=== PATIENT | male | born 1950 | race Caucasian/White ===

== ENCOUNTER 2019-06-03 07:47 | Outpatient (CLI) | payer OTHER, SELFPAY ==
[2019-06-03 08:27] LABS: Alanine Aminotransferase 13 U/L (4-50); Albumin Level 4.3 g/dL (3.5-5.1); Alkaline Phosphatase 81 U/L (38-126); Aspartate Amino Transferase 20 U/L (17-59); Bilirubin,Total 0.5 mg/dL (0.2-1.3); Blood Urea Nitrogen 19 mg/dL (9-20); Calcium 9.3 mg/dL (8.4-10.2); Carbon Dioxide 25 mmol/L (22-30); Chloride 101 mmol/L (98-107); Cholesterol 168 mg/dL (0-200); Estimated Glomerular Filt Rate 38; Glucose 159 mg/dL (75-110); HDL Direct 64 mg/dL; Potassium 4.5 mmol/L (3.4-5.0); Sodium 138 mmol/L (137-145); Triglycerides 138 mg/dL (<150)
[2019-06-03 08:38] LABS: LDL Cholesterol Direct 77 mg/dL
[2019-06-03 09:15] LABS: Hemoglobin A1C 7.2 % (<5.7)
[2019-06-03 10:21] LABS: Free T4 Free Thyroxine 1.04 ng/mL (0.78-2.19)
== END 2019-06-03 07:48 | disposition home or self-care (01) ==
PROVIDERS: PCP Internal Medicine; Visit Provider Nurse Practitioner
DX: E78.5 Hyperlipidemia, unspecified (principal); E11.29 Type 2 diabetes mellitus with other diabetic kidney complication; E03.9 Hypothyroidism, unspecified
CPT/HCPCS: 36415; 80048; 80061; 80076; 83036; 84439; 84443

== ENCOUNTER 2019-06-14 08:12 | Outpatient (CLI) | payer OTHER, SELFPAY ==
[2019-06-14 09:04] LABS: Creatinine Urine 85.2 mg/dL; Total Protein Urine Random 8 mg/dL
[2019-06-14 09:10] LABS: Albumin Level 3.9 g/dL (3.5-5.1); Blood Urea Nitrogen 21 mg/dL (9-20); Calcium 8.9 mg/dL (8.4-10.2); Carbon Dioxide 26 mmol/L (22-30); Chloride 107 mmol/L (98-107); Estimated Glomerular Filt Rate 38; Glucose 83 mg/dL (75-110); Phosphorus 3.7 mg/dL (2.5-4.5); Potassium 4.6 mmol/L (3.4-5.0); Sodium 138 mmol/L (137-145)
[2019-06-14 09:15] LABS: Hemoglobin A1C 7.2 % (<5.7)
[2019-06-14 09:19] LABS: Parathyroid Intact 59.4 pg/mL (7.5-53.5)
[2019-06-14 09:38] LABS: Vitamin D 25 Hydroxy 47.5 ng/mL
== END 2019-06-14 08:13 | disposition home or self-care (01) ==
PROVIDERS: PCP Internal Medicine; Visit Provider Internal Medicine Nephrology
DX: I12.9 Hypertensive chronic kidney disease with stage 1 through stage 4 chronic kidney disease, or unspecified chronic kidney disease (principal); N18.3 Chronic kidney disease, stage 3 (moderate); E11.29 Type 2 diabetes mellitus with other diabetic kidney complication; R80.8 Other proteinuria
CPT/HCPCS: 36415; 80069; 82306; 82570; 83036; 83970; 84156

== ENCOUNTER 2019-10-19 07:36 | Outpatient (CLI) | payer OTHER, SELFPAY ==
[2019-10-19 08:22] LABS: Creatinine Urine 89.7 mg/dL; Total Protein Urine Random 9 mg/dL
[2019-10-19 08:23] LABS: Albumin Level 4.1 g/dL (3.5-5.1); Blood Urea Nitrogen 27 mg/dL (9-20); Carbon Dioxide 25 mmol/L (22-30); Chloride 105 mmol/L (98-107); Estimated Glomerular Filt Rate 38; Glucose 139 mg/dL (75-110); Phosphorus 3.9 mg/dL (2.5-4.5); Potassium 4.7 mmol/L (3.4-5.0); Sodium 134 mmol/L (137-145)
== END 2019-10-19 07:37 | disposition home or self-care (01) ==
LOC: ANHLAB 07:40
PROVIDERS: PCP Internal Medicine; Visit Provider Internal Medicine Nephrology
DX: N18.3 Chronic kidney disease, stage 3 (moderate) (principal); I12.9 Hypertensive chronic kidney disease with stage 1 through stage 4 chronic kidney disease, or unspecified chronic kidney disease; E11.29 Type 2 diabetes mellitus with other diabetic kidney complication; R80.8 Other proteinuria
CPT/HCPCS: 36415; 80069; 82570; 84156

== ENCOUNTER 2019-12-03 07:51 | Outpatient (CLI) | payer OTHER, SELFPAY ==
[2019-12-03 08:50] LABS: Alanine Aminotransferase 13 U/L (4-50); Albumin Level 4.1 g/dL (3.5-5.1); Alkaline Phosphatase 62 U/L (38-126); Anion Gap 7 mmol/L (8-16); Aspartate Amino Transferase 21 U/L (17-59); Bilirubin,Total 0.3 mg/dL (0.2-1.3); Blood Urea Nitrogen 28 mg/dL (9-20); Carbon Dioxide 25 mmol/L (22-30); Chloride 105 mmol/L (98-107); Cholesterol 196 mg/dL (0-200); Estimated Glomerular Filt Rate 38; Glucose 137 mg/dL (75-110); HDL Direct 55 mg/dL; Potassium 4.9 mmol/L (3.4-5.0); Sodium 137 mmol/L (137-145); Triglycerides 141 mg/dL (<150)
[2019-12-03 09:01] LABS: LDL Cholesterol Direct 91 mg/dL
[2019-12-03 09:15] LABS: Prostate Specific Antigen 2.3 ng/mL (< OR = 4.0)
[2019-12-03 09:23] LABS: Hemoglobin A1C 6.8 % (<5.7)
== END 2019-12-03 07:52 | disposition home or self-care (01) ==
LOC: ANHLAB 07:52
PROVIDERS: PCP Internal Medicine; Visit Provider Internal Medicine
DX: E03.9 Hypothyroidism, unspecified (principal); E78.5 Hyperlipidemia, unspecified; E11.21 Type 2 diabetes mellitus with diabetic nephropathy; I10 Essential (primary) hypertension; Z79.899 Other long term (current) drug therapy; Z12.5 Encounter for screening for malignant neoplasm of prostate
CPT/HCPCS: 36415; 80053; 80061; 83036; 84153; 84443; G0103

== ENCOUNTER 2020-02-16 09:13 | Outpatient (CLI) | payer OTHER, SELFPAY ==
[2020-02-16 09:51] LABS: Albumin Level 4.2 g/dL (3.5-5.1); Anion Gap 7 mmol/L (8-16); Blood Urea Nitrogen 17 mg/dL (9-20); Calcium 9.4 mg/dL (8.4-10.2); Carbon Dioxide 27 mmol/L (22-30); Chloride 103 mmol/L (98-107); Estimated Glomerular Filt Rate 38; Glucose 146 mg/dL (75-110); Phosphorus 3.3 mg/dL (2.5-4.5); Potassium 5.4 mmol/L (3.4-5.0); Sodium 137 mmol/L (137-145)
[2020-02-16 09:58] LABS: Creatinine Urine 110.9 mg/dL; Total Protein Urine Random 9 mg/dL
[2020-02-16 10:02] LABS: Parathyroid Intact 53.9 pg/mL (7.5-53.5)
== END 2020-02-16 09:14 | disposition home or self-care (01) ==
PROVIDERS: PCP Internal Medicine; Visit Provider Internal Medicine Nephrology
DX: I12.9 Hypertensive chronic kidney disease with stage 1 through stage 4 chronic kidney disease, or unspecified chronic kidney disease (principal); N18.30 Chronic kidney disease, stage 3 unspecified; E11.22 Type 2 diabetes mellitus with diabetic chronic kidney disease; R80.8 Other proteinuria
CPT/HCPCS: 36415; 80069; 82306; 82570; 83970; 84156

== ENCOUNTER 2021-10-02 11:47 | Outpatient (CLI) | payer MEDICARE, SELFPAY ==
[2021-10-02 12:41] LABS: Albumin Level 4.1 g/dL (3.5-5.1); Anion Gap 5 mmol/L (8-16); Blood Urea Nitrogen 36 mg/dL (9-20); Calcium 8.2 mg/dL (8.4-10.2); Carbon Dioxide 22 mmol/L (22-30); Chloride 108 mmol/L (98-107); Estimated Glomerular Filt Rate 35; Glucose 174 mg/dL (65-110); Potassium 4.5 mmol/L (3.4-5.0); Sodium 135 mmol/L (137-145)
[2021-10-02 12:53] LABS: Parathyroid Intact 126.4 pg/mL (7.5-53.5)
[2021-10-02 13:08] LABS: Creatinine Urine 107.3 mg/dL
[2021-10-02 13:17] LABS: Vitamin D 25 Hydroxy 34.1 ng/mL
[2021-10-02 14:06] LABS: Total Protein Urine Random < 5 mg/dL; Ur Ttl Prot Creatinine Ratio < 0.05 mg/mg (0-0.20)
== END 2021-10-02 11:48 | disposition home or self-care (01) ==
PROVIDERS: PCP Internal Medicine; Visit Provider Internal Medicine Nephrology
DX: N18.32 Chronic kidney disease, stage 3b (principal); E11.29 Type 2 diabetes mellitus with other diabetic kidney complication; I12.9 Hypertensive chronic kidney disease with stage 1 through stage 4 chronic kidney disease, or unspecified chronic kidney disease; E55.9 Vitamin D deficiency, unspecified
CPT/HCPCS: 36415; 80069; 82306; 82570; 83970; 84156

== ENCOUNTER 2022-02-12 13:11 | Outpatient (CLI) | payer MEDICARE, SELFPAY ==
[2022-02-12 13:56] LABS: Creatinine Urine 80.9 mg/dL
[2022-02-12 14:02] LABS: Albumin Level 4.3 g/dL (3.5-5.1); Anion Gap 10 mmol/L (8-16); Blood Urea Nitrogen 29 mg/dL (9-20); Calcium 8.6 mg/dL (8.4-10.2); Carbon Dioxide 22 mmol/L (22-30); Chloride 103 mmol/L (98-107); Estimated Glomerular Filt Rate 35; Glucose 96 mg/dL (65-110); Phosphorus 3.4 mg/dL (2.5-4.5); Potassium 4.7 mmol/L (3.4-5.0); Sodium 135 mmol/L (137-145)
[2022-02-12 14:05] LABS: Parathyroid Intact 82.6 pg/mL (7.5-53.5)
[2022-02-12 14:12] LABS: Total Protein Urine Random < 5 mg/dL; Ur Ttl Prot Creatinine Ratio < 0.06 mg/mg (0-0.20)
== END 2022-02-12 13:12 | disposition home or self-care (01) ==
LOC: ANHLAB 13:15
PROVIDERS: PCP Internal Medicine; Visit Provider Internal Medicine Nephrology
DX: N18.32 Chronic kidney disease, stage 3b (principal); E11.29 Type 2 diabetes mellitus with other diabetic kidney complication; I12.9 Hypertensive chronic kidney disease with stage 1 through stage 4 chronic kidney disease, or unspecified chronic kidney disease; N25.81 Secondary hyperparathyroidism of renal origin
CPT/HCPCS: 36415; 80069; 82570; 83970; 84156

== ENCOUNTER 2022-03-26 10:08 | Outpatient (CLI) | payer MEDICARE, SELFPAY ==
[2022-03-26 11:51] LABS: Alanine Aminotransferase 17 U/L (6-50); Albumin Level 4.4 g/dL (3.5-5.1); Alkaline Phosphatase 96 U/L (38-126); Anion Gap 7 mmol/L (8-16); Aspartate Amino Transferase 23 U/L (17-59); Bilirubin,Total 0.4 mg/dL (0.2-1.3); Blood Urea Nitrogen 31 mg/dL (9-20); Calcium 8.9 mg/dL (8.4-10.2); Carbon Dioxide 24 mmol/L (22-30); Chloride 101 mmol/L (98-107); Cholesterol 271 mg/dL (0-200); Estimated Glomerular Filt Rate 31; Glucose 101 mg/dL (65-110); HDL Direct 65 mg/dL; Potassium 4.8 mmol/L (3.4-5.0); Sodium 132 mmol/L (137-145); Triglycerides 201 mg/dL (<150)
[2022-03-26 12:01] LABS: LDL Cholesterol Direct 113 mg/dL
[2022-03-26 12:18] LABS: Vitamin D 25 Hydroxy 31.1 ng/mL
== END 2022-03-26 10:09 | disposition home or self-care (01) ==
LOC: ANHLAB 10:11
PROVIDERS: PCP Internal Medicine; Visit Provider Internal Medicine
DX: E78.5 Hyperlipidemia, unspecified (principal); I10 Essential (primary) hypertension; E03.9 Hypothyroidism, unspecified; E55.9 Vitamin D deficiency, unspecified; E11.21 Type 2 diabetes mellitus with diabetic nephropathy
CPT/HCPCS: 36415; 80053; 80061; 82306; 83036; 84443

== ENCOUNTER 2022-06-25 11:55 | Outpatient (CLI) | payer MEDICARE, SELFPAY ==
[2022-06-25 12:37] LABS: Creatinine Urine 58.3 mg/dL; Total Protein Urine Random 6 mg/dL
[2022-06-25 12:44] LABS: Albumin Level 4.4 g/dL (3.5-5.1); Anion Gap 5 mmol/L (8-16); Blood Urea Nitrogen 32 mg/dL (9-20); Calcium 9.2 mg/dL (8.4-10.2); Carbon Dioxide 25 mmol/L (22-30); Chloride 104 mmol/L (98-107); Estimated Glomerular Filt Rate 33; Glucose 106 mg/dL (65-110); Phosphorus 3.9 mg/dL (2.5-4.5); Potassium 5.1 mmol/L (3.4-5.0); Sodium 134 mmol/L (137-145)
[2022-06-25 13:01] LABS: Vitamin D 25 Hydroxy 25.7 ng/mL
[2022-06-25 20:03] LABS: Parathyroid Intact 62.8 pg/mL (7.5-53.5)
== END 2022-06-25 11:56 | disposition home or self-care (01) ==
LOC: ANHLAB 11:57
PROVIDERS: PCP Internal Medicine; Visit Provider Internal Medicine Nephrology
DX: N18.32 Chronic kidney disease, stage 3b (principal); E11.22 Type 2 diabetes mellitus with diabetic chronic kidney disease; I12.9 Hypertensive chronic kidney disease with stage 1 through stage 4 chronic kidney disease, or unspecified chronic kidney disease; E55.9 Vitamin D deficiency, unspecified; N25.81 Secondary hyperparathyroidism of renal origin
CPT/HCPCS: 36415; 80069; 82306; 82570; 83970; 84156

== ENCOUNTER 2022-09-24 08:00 | Outpatient (CLI) | payer MEDICARE, SELFPAY ==
[2022-09-24 19:41] LABS: Hemoglobin A1C 6.7 % (<5.7)
[2022-09-25 12:59] LABS: Alanine Aminotransferase 18 U/L (6-50); Albumin Level 4.2 g/dL (3.5-5.1); Alkaline Phosphatase 64 U/L (38-126); Anion Gap 9 mmol/L (8-16); Aspartate Amino Transferase 31 U/L (17-59); Bilirubin,Total 0.3 mg/dL (0.2-1.3); Blood Urea Nitrogen 33 mg/dL (9-20); Calcium 8.5 mg/dL (8.4-10.2); Carbon Dioxide 22 mmol/L (22-30); Chloride 105 mmol/L (98-107); Cholesterol 186 mg/dL (0-200); Estimated Glomerular Filt Rate 31; Glucose 86 mg/dL (65-110); HDL Direct 59 mg/dL; LDL Cholesterol Direct 78 mg/dL; Potassium 4.9 mmol/L (3.4-5.0); Sodium 136 mmol/L (137-145); Triglycerides 135 mg/dL (<150)
[2022-09-25 13:01] LABS: Vitamin D 25 Hydroxy 21.3 ng/mL
== END 2022-09-24 08:01 | disposition home or self-care (01) ==
LOC: ANHLAB 18:47
PROVIDERS: PCP Internal Medicine; Visit Provider Nurse Practitioner
DX: E55.9 Vitamin D deficiency, unspecified (principal); E78.5 Hyperlipidemia, unspecified; E11.9 Type 2 diabetes mellitus without complications
CPT/HCPCS: 36415; 80053; 80061; 82306; 83036

== ENCOUNTER 2022-10-29 13:02 | Outpatient (CLI) | payer MEDICARE, SELFPAY ==
[2022-10-29 13:42] LABS: Creatinine Urine 77.9 mg/dL; Total Protein Urine Random < 5 mg/dL; Ur Ttl Prot Creatinine Ratio < 0.06 mg/mg (0-0.20)
== END 2022-10-29 13:03 | disposition home or self-care (01) ==
PROVIDERS: PCP Family Medicine; Visit Provider Internal Medicine Nephrology
DX: E11.22 Type 2 diabetes mellitus with diabetic chronic kidney disease (principal); N18.32 Chronic kidney disease, stage 3b; I12.9 Hypertensive chronic kidney disease with stage 1 through stage 4 chronic kidney disease, or unspecified chronic kidney disease
CPT/HCPCS: 36415; 82570; 84156

== ENCOUNTER 2022-11-05 08:25 | Outpatient (CLI) | payer MEDICARE, SELFPAY ==
[2022-11-05 09:57] LABS: Albumin Level 3.5 g/dL (3.5-5.1); Anion Gap 11 mmol/L (8-16); Blood Urea Nitrogen 33 mg/dL (9-20); Calcium 8.2 mg/dL (8.4-10.2); Carbon Dioxide 21 mmol/L (22-30); Chloride 95 mmol/L (98-107); Estimated Glomerular Filt Rate 31; Glucose 369 mg/dL (65-110); Phosphorus 2.8 mg/dL (2.5-4.5); Potassium 4.2 mmol/L (3.4-5.0); Sodium 127 mmol/L (137-145)
== END 2022-11-05 08:26 | disposition home or self-care (01) ==
LOC: ANHLAB 08:26
PROVIDERS: PCP Nurse Practitioner Family; Visit Provider Internal Medicine Nephrology
DX: I12.9 Hypertensive chronic kidney disease with stage 1 through stage 4 chronic kidney disease, or unspecified chronic kidney disease (principal); N18.32 Chronic kidney disease, stage 3b; E11.22 Type 2 diabetes mellitus with diabetic chronic kidney disease
CPT/HCPCS: 36415; 80069

== ENCOUNTER 2023-03-04 12:58 | Outpatient (CLI) | payer MEDICARE, SELFPAY ==
[2023-03-04 13:37] LABS: Creatinine Urine 108.1 mg/dL; Total Protein Urine Random 8 mg/dL; Ur Ttl Prot Creatinine Ratio 0.07 mg/mg (0-0.20)
[2023-03-04 13:40] LABS: Albumin Level 4.1 g/dL (3.5-5.1); Anion Gap 7 mmol/L (8-16); Blood Urea Nitrogen 27 mg/dL (9-20); Calcium 9.1 mg/dL (8.4-10.2); Carbon Dioxide 24 mmol/L (22-30); Chloride 103 mmol/L (98-107); Estimated Glomerular Filt Rate 30; Glucose 172 mg/dL (65-110); Phosphorus 3.3 mg/dL (2.5-4.5); Potassium 5.2 mmol/L (3.4-5.0); Sodium 134 mmol/L (137-145)
[2023-03-04 13:51] LABS: Parathyroid Intact 81.2 pg/mL (7.5-53.5)
[2023-03-04 14:17] LABS: Vitamin D 25 Hydroxy 23.4 ng/mL
== END 2023-03-04 12:59 | disposition home or self-care (01) ==
LOC: ANHLAB 13:00
PROVIDERS: PCP Family Medicine; Visit Provider Internal Medicine Nephrology
DX: I12.9 Hypertensive chronic kidney disease with stage 1 through stage 4 chronic kidney disease, or unspecified chronic kidney disease (principal); N18.32 Chronic kidney disease, stage 3b; E11.22 Type 2 diabetes mellitus with diabetic chronic kidney disease; E55.9 Vitamin D deficiency, unspecified; N25.81 Secondary hyperparathyroidism of renal origin
CPT/HCPCS: 36415; 80069; 82306; 82570; 83970; 84156

== ENCOUNTER 2023-05-13 09:32 | Outpatient (CLI) | payer MEDICARE, SELFPAY ==
[2023-05-13 11:08] LABS: Hematocrit 38.7 % (42.0-52.0); Hemoglobin 12.5 g/dL (14.0-18.0); Mean Corpuscular HGB Conc 32.3 g/dl (32-36); Mean Corpuscular Hemoglobin 30.9 pg (26-34); Mean Corpuscular Volume 95.6 fl (80-100); Mean Platelet Volume 10.2 fl (7.4-10.4); Platelet Count Result 251 k/mm3 (150-375); Red Blood Count 4.05 M/mm3 (4.6-6.20); Red Cell Distribution Width 13.2 % (11.5-14.5); White Blood Count 8.7 K/mm3 (4.5-10.0)
[2023-05-13 11:35] LABS: LDL Cholesterol Direct 73 mg/dL
[2023-05-13 15:14] LABS: Cholesterol 163 mg/dL (0-200); HDL Direct 61 mg/dL; Triglycerides 122 mg/dL (<150)
== END 2023-05-13 09:33 | disposition home or self-care (01) ==
PROVIDERS: PCP Family Medicine; Visit Provider Nurse Practitioner Family
DX: E78.5 Hyperlipidemia, unspecified (principal); E03.9 Hypothyroidism, unspecified; E55.9 Vitamin D deficiency, unspecified; E11.21 Type 2 diabetes mellitus with diabetic nephropathy; E11.39 Type 2 diabetes mellitus with other diabetic ophthalmic complication; E11.22 Type 2 diabetes mellitus with diabetic chronic kidney disease; I12.9 Hypertensive chronic kidney disease with stage 1 through stage 4 chronic kidney disease, or unspecified chronic kidney disease; N18.32 Chronic kidney disease, stage 3b; N13.8 Other obstructive and reflux uropathy; N40.1 Benign prostatic hyperplasia with lower urinary tract symptoms
CPT/HCPCS: 36415; 80053; 80061; 83036; 84443; 85027

== ENCOUNTER 2023-06-24 10:58 | Outpatient (CLI) | payer MEDICARE, SELFPAY ==
[2023-06-24 12:15] LABS: Creatinine Urine 90.3 mg/dL; Total Protein Urine Random 6 mg/dL; Ur Ttl Prot Creatinine Ratio 0.07 mg/mg (0-0.20)
[2023-06-24 12:34] LABS: Albumin Level 4.3 g/dL (3.5-5.1); Anion Gap 7 mmol/L (8-16); Blood Urea Nitrogen 31 mg/dL (9-20); Calcium 9.1 mg/dL (8.4-10.2); Carbon Dioxide 25 mmol/L (22-30); Chloride 103 mmol/L (98-107); Estimated Glomerular Filt Rate 33; Glucose 115 mg/dL (65-110); Phosphorus 3.3 mg/dL (2.5-4.5); Potassium 4.6 mmol/L (3.4-5.0); Sodium 135 mmol/L (137-145)
== END 2023-06-24 10:59 | disposition home or self-care (01) ==
PROVIDERS: PCP Family Medicine; Visit Provider Internal Medicine Nephrology
DX: E11.22 Type 2 diabetes mellitus with diabetic chronic kidney disease (principal); I12.9 Hypertensive chronic kidney disease with stage 1 through stage 4 chronic kidney disease, or unspecified chronic kidney disease; N18.32 Chronic kidney disease, stage 3b
CPT/HCPCS: 36415; 80069; 82570; 84156

== ENCOUNTER 2023-10-28 07:59 | Outpatient (CLI) | payer MEDICARE, SELFPAY ==
[2023-10-28 08:27] LABS: Albumin Level 4.2 g/dL (3.5-5.1); Anion Gap 9 mmol/L (4-12); Blood Urea Nitrogen 27 mg/dL (9-20); Calcium 8.9 mg/dL (8.4-10.2); Carbon Dioxide 24 mmol/L (22-30); Chloride 99 mmol/L (98-107); Estimated Glomerular Filt Rate 33; Glucose 170 mg/dL (65-110); Phosphorus 3.5 mg/dL (2.5-4.5); Potassium 5.1 mmol/L (3.4-5.0); Sodium 132 mmol/L (137-145)
[2023-10-28 09:36] LABS: Creatinine Urine 99.9 mg/dL; Total Protein Urine Random 6 mg/dL; Ur Ttl Prot Creatinine Ratio 0.06 mg/mg (0-0.20)
[2023-10-28 09:44] LABS: Vitamin D 25 Hydroxy 30.8 ng/mL
== END 2023-10-28 08:00 | disposition home or self-care (01) ==
LOC: ANHLAB 08:02
PROVIDERS: PCP Nurse Practitioner Family; Visit Provider Internal Medicine Nephrology
DX: E55.9 Vitamin D deficiency, unspecified (principal); E11.22 Type 2 diabetes mellitus with diabetic chronic kidney disease; I12.9 Hypertensive chronic kidney disease with stage 1 through stage 4 chronic kidney disease, or unspecified chronic kidney disease; N18.32 Chronic kidney disease, stage 3b; N25.81 Secondary hyperparathyroidism of renal origin
CPT/HCPCS: 36415; 80069; 82306; 82570; 83970; 84156

== ENCOUNTER 2024-02-04 07:48 | Outpatient (CLI) | payer MEDICARE, SELFPAY ==
[2024-02-04 08:22] LABS: Hemoglobin A1C 7.6 % (<5.7)
== END 2024-02-04 07:49 | disposition home or self-care (01) ==
PROVIDERS: PCP Nurse Practitioner Family; Visit Provider Nurse Practitioner Family
DX: E11.39 Type 2 diabetes mellitus with other diabetic ophthalmic complication (principal)
CPT/HCPCS: 36415; 83036

== ENCOUNTER 2024-02-22 08:52 | Outpatient (CLI) | payer MEDICARE, SELFPAY ==
[2024-02-22 09:32] LABS: Albumin Level 4.1 g/dL (3.5-5.1); Anion Gap 7 mmol/L (4-12); Blood Urea Nitrogen 32 mg/dL (9-20); Calcium 8.8 mg/dL (8.4-10.2); Carbon Dioxide 23 mmol/L (22-30); Chloride 104 mmol/L (98-107); Estimated Glomerular Filt Rate 29; Glucose 141 mg/dL (65-110); Phosphorus 3.7 mg/dL (2.5-4.5); Potassium 4.7 mmol/L (3.4-5.0); Sodium 134 mmol/L (137-145)
[2024-02-22 13:44] LABS: Creatinine Urine 67.3 mg/dL; Total Protein Urine Random 9 mg/dL; Ur Ttl Prot Creatinine Ratio 0.13 mg/mg (0-0.20)
== END 2024-02-22 08:53 | disposition home or self-care (01) ==
PROVIDERS: PCP Nurse Practitioner Family; Visit Provider Internal Medicine Nephrology
DX: E11.22 Type 2 diabetes mellitus with diabetic chronic kidney disease (principal); I12.9 Hypertensive chronic kidney disease with stage 1 through stage 4 chronic kidney disease, or unspecified chronic kidney disease; N18.32 Chronic kidney disease, stage 3b
CPT/HCPCS: 36415; 80069; 82570; 84156

== ENCOUNTER 2024-04-05 07:52 | Outpatient (CLI) | payer MEDICARE, SELFPAY ==
[2024-04-05 08:50] LABS: Basophils Absolute Auto 0.1 K/mm3 (0.0-0.1); Basophils Percent Auto 1.4 % (0.2-1.2); Eosinophils Absolute Auto 0.2 K/mm3 (0-0.3); Eosinophils Percent Auto 3.6 % (0-4.4); Hemoglobin 13.3 g/dL (14.0-18.0); Immature Granulocyte Absolute 0.04 K/mm3 (0.00-0.031); Immature Granulocyte Percent A 0.6 % (0-0.5); Lymphocytes Percent Auto 26.4 % (18.3-44.2); Mean Corpuscular HGB Conc 31.7 g/dl (32-36); Mean Corpuscular Hemoglobin 30.7 pg (26-34); Mean Platelet Volume 10.3 fl (7.4-10.4); Monocytes Absolute Auto 0.6 K/mm3 (0.1-0.6); Monocytes Percent Auto 9.1 % (2.6-8.5); Neutrophils Absolute Auto 3.8 K/mm3 (1.3-6.7); Neutrophils Percent Auto 58.9 % (45.5-73.1); Platelet Count Result 243 k/mm3 (150-375); Red Blood Count 4.33 M/mm3 (4.6-6.20); Red Cell Distribution Width 14.5 % (11.5-14.5); White Blood Count 6.5 K/mm3 (4.5-10.0)
[2024-04-05 08:56] LABS: Hemoglobin A1C 7.2 % (<5.7)
[2024-04-05 09:00] LABS: Cholesterol 166 mg/dL (0-200); HDL Direct 68 mg/dL; Triglycerides 158 mg/dL (<150)
[2024-04-05 09:11] LABS: LDL Cholesterol Direct 51 mg/dL
[2024-04-05 09:32] LABS: Free T4 Free Thyroxine 1.17 ng/dL (0.78-2.19)
== END 2024-04-05 07:53 | disposition home or self-care (01) ==
LOC: ANHLAB 07:56
PROVIDERS: PCP Family Medicine; Visit Provider Nurse Practitioner Family
DX: E11.39 Type 2 diabetes mellitus with other diabetic ophthalmic complication (principal); I12.9 Hypertensive chronic kidney disease with stage 1 through stage 4 chronic kidney disease, or unspecified chronic kidney disease; E78.5 Hyperlipidemia, unspecified; N40.1 Benign prostatic hyperplasia with lower urinary tract symptoms; N13.8 Other obstructive and reflux uropathy; E11.22 Type 2 diabetes mellitus with diabetic chronic kidney disease; E03.9 Hypothyroidism, unspecified; N25.81 Secondary hyperparathyroidism of renal origin; N18.32 Chronic kidney disease, stage 3b; E55.9 Vitamin D deficiency, unspecified
CPT/HCPCS: 36415; 80061; 83036; 84439; 84443; 85025

== ENCOUNTER 2024-04-16 09:03 | Outpatient (CLI) | payer MEDICARE, SELFPAY ==
[2024-04-16 11:34] LABS: Alanine Aminotransferase 20 U/L (6-50); Albumin Level 3.9 g/dL (3.5-5.1); Alkaline Phosphatase 70 U/L (38-126); Anion Gap 0 mmol/L (4-12); Aspartate Amino Transferase 23 U/L (17-59); Bilirubin,Total 0.4 mg/dL (0.2-1.3); Blood Urea Nitrogen 40 mg/dL (9-20); Calcium 9.2 mg/dL (8.4-10.2); Carbon Dioxide 26 mmol/L (22-30); Chloride 110 mmol/L (98-107); Estimated Glomerular Filt Rate 27; Glucose 125 mg/dL (65-110); Potassium 5.1 mmol/L (3.4-5.0); Sodium 136 mmol/L (137-145)
== END 2024-04-16 09:04 | disposition home or self-care (01) ==
PROVIDERS: PCP Family Medicine; Visit Provider Nurse Practitioner Family
DX: E11.22 Type 2 diabetes mellitus with diabetic chronic kidney disease (principal); I10 Essential (primary) hypertension; E03.9 Hypothyroidism, unspecified
CPT/HCPCS: 36415; 80053

== ENCOUNTER 2024-06-17 07:39 | Outpatient (CLI) | payer MEDICARE, SELFPAY ==
--- OUTSIDE RECORDS SUMMARY | 2024-06-17 07:46 | XMS_ITS | CONTINUITY OF CARE DOCUMENT ---
Author Name susanne skinner Address Unknown Organization [facility] Address [id number] [place] [address] [address] [place] [address] Phone [phone] Care Team Providers Care Veterinary Epidemiologist Name Role Phone JANY HATCH MD Unavailable JANY HATCH MD Unavailable PROBLEMS Condition Status Date Provider Notes HTN essential active SIVA GONZALEZ MD Diabetes mellitus active SIVA GONZALEZ MD Other and unspecified hyperlipidemia active SIVA GONZALEZ MD ENCOUNTERS Date Type Provider Location Encounter Diag nosis - In-person encounter Office Visit SIVA GONZALEZ MD [facility] - In-person encounter Office Visit SIVA GONZALEZ MD [facility] - In-person encounter Office Visit SIVA GONZALEZ MD [facility] - In-person encounter Office Visit SIVA GONZALEZ MD [facility] In-person encounter Office Visit SIVA GONZALEZ MD [facility] - In-person encounter Office Visit SIVA GONZALEZ MD [facility] - In-person encounter Office Visit SIVA GONZALEZ MD [facility] - In-person encounter Office Visit SIVA GONZALEZ MD [facility] - In-person encounter Office Visit SIVA GONZALEZ MD [facility] - In-person encounter Office Visit SIVA GONZALEZ MD [facility] - In-person encounter Office Visit Sunil Roach [facility] - In-person encounter Office Visit SIVA GONZALEZ MD [facility] - In-person encounter Office Visit SIVA GONZALEZ MD [facility] - In-person encounter Office Visit SIVA GONZALEZ MD [facility] - In-person encounter Office Visit SIVA GONZALEZ MD [facility] - In-person encounter Office Visit SIVA GONZALEZ MD [facility] - In-person encounter Office Visit SIVA GONZALEZ MD [facility] - In-person encounter Office Visit SIVA GONZALEZ MD [facility] - In-person encounter Office Visit SIVA GONZALEZ MD [facility] - In-person encounter Office Visit SIVA GONZALEZ MD [facility] HTN essentialDiabetes mellitusOther and unspecified hyperlipidemia - In-person encounter Office Visit Sunil Roach [facility] - In-person encounter Office Visit Sunil Roach [facility] - In-person encounter Office Visit Sunil Roach [facility] - In-person encounter Office Visit Sunil Roach [facility] - In-person encounter Office Visit Sunil Roach [facility] - In-person encounter Office Visit Sunil Roach [facility] - In-person encounter Office Visit Sunil Roach [facility] - In-person encounter Office Visit Sunil Roach [facility] - In-person encounter Office Visit Nestorcitlalli Roach [facility] - In-person encounter Office Visit Narayanyonis Roach [facility] - In-person encounter Office Visit Narayanyonis Roach [facility] - In-person encounter Office Visit Narayanyonis [facility] Office - In-person encounter Office Visit Narayanyonis Roach [facility] - In-person encounter Office Visit Narayanyonis Roach [facility] - In-person encounter Office Visit Narayanyonis [facility] Office - In-person encounter Office Visit Narayanyonis [facility] Office - [facility] Office Visit Narayanyonis [facility] Office - In-person encounter Office Visit Narayanyonis [facility] Office - In-person encounter Office Visit Narayanyonis [facility] - In-person encounter Office Visit Narayanyonis [facility] Office - In-person encounter Office Visit Narayanyonis [facility] Office - [facility] HISTORY OF MEDICATION USE Medication Status Instructions Dates Provider Indications Com ments ASPIRIN 81 MG ORAL TABLET active ONE TAB. DAILY SIVA GONZALEZ MD LOVASTATIN 20 MG ORAL TABLET active ONE TAB. DAILY SIVA GONZALEZ MD LISINOPRIL 10 MG ORAL TABLET active ONE TAB. DAILY SIVA GONZALEZ MD GLUCOPHAGE 500 MG ORAL TABLET active ONE TABLET TWICE DAILY SIVA GONZALEZ MD GLIPIZIDE 5 MG ORAL TABLET active TWO TABLETS IN THE MONRING & TWO TABLET IN THE EVENING SIVA GONZALEZ MD INSURANCE PROVIDERS Payer name Policy type / Coverage type [place] red libertarian ID [id number] PAY [id number]
--- OUTSIDE RECORDS SUMMARY | 2024-06-17 07:46 | XMS_ITS | Continuity of Care Document ---
Author Organization [facility] Address [address] [place] [address] Phone Care Team Providers Care Primer Boxer Name Role Phone [facility] Unavailable Unavail able Niko Calix Unavailable Unavailable Procedures Procedure Date BF Plastic Sphcyl Drumright To +/-4d .12-2d Frames Deluxe Tint Photochromatic, Plastic Tax - Medical Eye Exam & Treatment Refraction Advance Directives Directive Yes / No Effective Date File Name No Information Encounters Encounter Description Practice Location Reason(s) For Visit Diagnoses Date Provider Providers Copied on Encounter [facility], [address] [place] [address] [address], [place], [place], [id number], [place] tel:[phone] SEC [facility] No Information 3-200 8 [facility] . [address] [facility], [facility] [place] [address], [place], [id number], [place]. tel:[phone] Referring Provider: Candy Coon, [address] [place] [address] [address], [place], [address]. tel:[phone] sulting Provider: Niko Calix, [facility], [place], [address]. tel:[phone] [facility], [address] [place] [address] [address], [place], [place], [id number], [place] tel:[phone] [facility] No Information 7-200 8 Orin Acevedon. [address] [facility] , [address], [place], [address], [place]. tel:[phone] Family History Family Member Type Diagnosis Age At Onset No Information Payers Payer name Insurance type Covered libertarian ID Authoriza tion(s) No Information Social History Type Description Quantity Date Captured Comments Sex Male Smoking Status No Information Chief Complaint And Reason For Visit No Information Reason For Referral Reason For Referral No Information History Of Present Illness Encounter Date Complaint History Of Prese nt Illness No Information Functional Status Date Functional Assessmen t No Information Instructions Date Instruction Additional Infor mation No Information Assessments Type Assessment Date No Information Patient Care Teams Name Effective Dates (start - stop) Status Members No Information
[2024-06-17 08:48] LABS: Anion Gap 9 mmol/L (4-12); Blood Urea Nitrogen 31 mg/dL (9-20); Calcium 9.3 mg/dL (8.4-10.2); Carbon Dioxide 22 mmol/L (22-30); Chloride 107 mmol/L (98-107); Estimated Glomerular Filt Rate 36; Glucose 114 mg/dL (65-110); Phosphorus 3.8 mg/dL (2.5-4.5); Sodium 138 mmol/L (137-145)
[2024-06-17 09:41] LABS: Parathyroid Intact 67.4 pg/mL (14.5-75.2)
[2024-06-17 09:50] LABS: Vitamin D 25 Hydroxy 23.8 ng/mL
[2024-06-17 09:55] LABS: Creatinine Urine 53.2 mg/dL; Total Protein Urine Random 6 mg/dL; Ur Ttl Prot Creatinine Ratio 0.11 mg/mg (0-0.20)
== END 2024-06-17 07:40 | disposition home or self-care (01) ==
PROVIDERS: PCP Family Medicine; Visit Provider Internal Medicine Nephrology
DX: I12.9 Hypertensive chronic kidney disease with stage 1 through stage 4 chronic kidney disease, or unspecified chronic kidney disease (principal); E11.22 Type 2 diabetes mellitus with diabetic chronic kidney disease; N18.32 Chronic kidney disease, stage 3b; N25.81 Secondary hyperparathyroidism of renal origin; E55.9 Vitamin D deficiency, unspecified
CPT/HCPCS: 36415; 80069; 82306; 82570; 83970; 84156

== ENCOUNTER 2024-10-04 08:09 | Outpatient (CLI) | payer MEDICARE, SELFPAY ==
[2024-10-04 08:46] LABS: Basophils Absolute Auto 0.1 K/mm3 (0.0-0.1); Eosinophils Absolute Auto 0.3 K/mm3 (0-0.3); Eosinophils Percent Auto 4.2 % (0-4.4); Hematocrit 37.5 % (42.0-52.0); Hemoglobin 11.8 g/dL (14.0-18.0); Immature Granulocyte Absolute 0.06 K/mm3 (0.00-0.031); Immature Granulocyte Percent A 0.8 % (0-0.5); Lymphocytes Absolute Auto 1.44 K/mm3 (0.9-3.2); Mean Corpuscular HGB Conc 31.5 g/dl (32-36); Mean Corpuscular Hemoglobin 30.2 pg (26-34); Mean Corpuscular Volume 95.9 fl (80-100); Mean Platelet Volume 9.9 fl (7.4-10.4); Monocytes Absolute Auto 0.8 K/mm3 (0.1-0.6); Monocytes Percent Auto 10.4 % (2.6-8.5); Neutrophils Absolute Auto 4.6 K/mm3 (1.3-6.7); Neutrophils Percent Auto 63.6 % (45.5-73.1); Platelet Count Result 205 k/mm3 (150-375); Red Blood Count 3.91 M/mm3 (4.6-6.20); Red Cell Distribution Width 15.5 % (11.5-14.5); White Blood Count 7.2 K/mm3 (4.5-10.0)
[2024-10-04 09:00] LABS: Alanine Aminotransferase 14 U/L (6-50); Albumin Level 3.5 g/dL (3.5-5.1); Alkaline Phosphatase 46 U/L (38-126); Anion Gap 6 mmol/L (4-12); Aspartate Amino Transferase 23 U/L (17-59); Bilirubin,Total 0.3 mg/dL (0.2-1.3); Blood Urea Nitrogen 40 mg/dL (9-20); Calcium 8.9 mg/dL (8.4-10.2); Carbon Dioxide 23 mmol/L (22-30); Chloride 109 mmol/L (98-107); Cholesterol 179 mg/dL (0-200); Estimated Glomerular Filt Rate 33; Glucose 112 mg/dL (65-110); HDL Direct 63 mg/dL; Potassium 5.1 mmol/L (3.4-5.0); Sodium 138 mmol/L (137-145); Triglycerides 147 mg/dL (<150)
[2024-10-04 09:11] LABS: LDL Cholesterol Direct 64 mg/dL
[2024-10-04 09:29] LABS: Prostate Specific Antigen 2.4 ng/mL (< OR = 4.0)
[2024-10-04 09:57] LABS: Hemoglobin A1C 6.8 % (<5.7)
== END 2024-10-04 08:10 | disposition home or self-care (01) ==
PROVIDERS: PCP Family Medicine; Visit Provider Nurse Practitioner Family
DX: I12.9 Hypertensive chronic kidney disease with stage 1 through stage 4 chronic kidney disease, or unspecified chronic kidney disease (principal); E11.22 Type 2 diabetes mellitus with diabetic chronic kidney disease; N18.32 Chronic kidney disease, stage 3b; E11.39 Type 2 diabetes mellitus with other diabetic ophthalmic complication; E03.9 Hypothyroidism, unspecified; N25.81 Secondary hyperparathyroidism of renal origin; E55.9 Vitamin D deficiency, unspecified; N40.1 Benign prostatic hyperplasia with lower urinary tract symptoms; N13.8 Other obstructive and reflux uropathy; Z12.5 Encounter for screening for malignant neoplasm of prostate
CPT/HCPCS: 36415; 80053; 80061; 83036; 84153; 85025; G0103

== ENCOUNTER 2024-10-17 08:06 | Outpatient (CLI) | payer MEDICARE, SELFPAY ==
--- OUTSIDE RECORDS SUMMARY | 2024-10-17 08:10 | XMS_ITS | Continuity of Care Document ---
Author Organization [facility] Address [address] [place] [address] Phone Care Team Providers Care Shipwright Name Role Phone [facility] Unavailable Unavail able Niko Calix Unavailable Unavailable Procedures Procedure Date BF Plastic Sphcyl [place] To +/-4d .12-2d Frames Deluxe Tint Photochromatic, Plastic Tax - Medical Eye Exam & Treatment Refraction Advance Directives Directive Yes / No Effective Date File Name No Information Encounters Encounter Description Practice Location Reason(s) For Visit Diagnoses Date Provider Providers Copied on Encounter [facility], [address] [place] [address] [address], [place], [place], [id number], [place] tel:[phone] SEC [facility] No Information 3-200 8 [facility] . [address] [facility], [facility] [address], [place], [id number], [place]. tel:[phone] Referring Provider: Candy Coon, [address] [place] [address] [address], [place], [address]. tel:[phone] sulting Provider: Niko Calix, [facility], [place], [address]. tel:[phone] [facility], [address] [place] [address] [address], [place], [place], [id number], [place] tel:[phone] SEC [facility] No Information 7-200 8 Orin Acevedon. [address] [facility] , [address], [place], [address], [place]. tel:[phone] Family History Family Member Type Diagnosis Age At Onset No Information Payers Payer name Insurance type Covered democrat ID Authoriza tion(s) No Information Social History [...]
[2024-10-17 08:44] LABS: Total Protein Urine Random 8 mg/dL; Ur Ttl Prot Creatinine Ratio 0.11 mg/mg (0-0.20)
[2024-10-17 08:46] LABS: Albumin Level 3.8 g/dL (3.5-5.1); Anion Gap 5 mmol/L (4-12); Blood Urea Nitrogen 30 mg/dL (9-20); Calcium 9.1 mg/dL (8.4-10.2); Carbon Dioxide 25 mmol/L (22-30); Chloride 108 mmol/L (98-107); Estimated Glomerular Filt Rate 32; Glucose 82 mg/dL (65-110); Potassium 5.2 mmol/L (3.4-5.0); Sodium 138 mmol/L (137-145)
== END 2024-10-17 08:07 | disposition home or self-care (01) ==
PROVIDERS: PCP Nurse Practitioner Family; Visit Provider Internal Medicine Nephrology
DX: I12.9 Hypertensive chronic kidney disease with stage 1 through stage 4 chronic kidney disease, or unspecified chronic kidney disease (principal); E11.22 Type 2 diabetes mellitus with diabetic chronic kidney disease; N18.32 Chronic kidney disease, stage 3b
CPT/HCPCS: 36415; 80069; 82570; 84156

== ENCOUNTER 2025-01-16 12:43 | Outpatient (CLI) | payer MEDICARE, SELFPAY ==
[2025-01-16 13:24] LABS: Hemoglobin A1C 6.8 % (<5.7)
[2025-01-16 13:25] LABS: Alanine Aminotransferase 20 U/L (6-50); Albumin Level 3.8 g/dL (3.5-5.1); Alkaline Phosphatase 64 U/L (38-126); Anion Gap 6 mmol/L (4-12); Aspartate Amino Transferase 32 U/L (17-59); Bilirubin,Total 0.4 mg/dL (0.2-1.3); Blood Urea Nitrogen 26 mg/dL (9-20); Calcium 8.8 mg/dL (8.4-10.2); Carbon Dioxide 22 mmol/L (22-30); Chloride 104 mmol/L (98-107); Estimated Glomerular Filt Rate 40; Glucose 126 mg/dL (65-110); Potassium 4.7 mmol/L (3.4-5.0); Sodium 132 mmol/L (137-145); Total Protein 6.1 g/dL (6.3-8.2)
== END 2025-01-16 12:44 | disposition home or self-care (01) ==
LOC: ANHLAB 12:44
PROVIDERS: PCP Nurse Practitioner Family; Visit Provider Nurse Practitioner Family
DX: I12.9 Hypertensive chronic kidney disease with stage 1 through stage 4 chronic kidney disease, or unspecified chronic kidney disease (principal); E11.22 Type 2 diabetes mellitus with diabetic chronic kidney disease; N18.4 Chronic kidney disease, stage 4 (severe); Z09 Encounter for follow-up examination after completed treatment for conditions other than malignant neoplasm; E16.2 Hypoglycemia, unspecified
CPT/HCPCS: 36415; 80053; 83036

== ENCOUNTER 2025-03-27 09:55 | Outpatient (CLI) | payer MEDICARE, SELFPAY ==
[2025-03-27 11:00] LABS: Albumin Level 3.8 g/dL (3.5-5.1); Anion Gap 3 mmol/L (4-12); Blood Urea Nitrogen 32 mg/dL (9-20); Calcium 9.2 mg/dL (8.4-10.2); Carbon Dioxide 27 mmol/L (22-30); Chloride 105 mmol/L (98-107); Estimated Glomerular Filt Rate 39; Glucose 147 mg/dL (65-110); Potassium 4.9 mmol/L (3.4-5.0); Sodium 135 mmol/L (137-145)
[2025-03-27 11:05] LABS: Total Protein Urine Random < 5 mg/dL; Ur Ttl Prot Creatinine Ratio < 0.06 mg/mg (0-0.20)
[2025-03-27 11:14] LABS: Parathyroid Intact 43.6 pg/mL (14.5-75.2)
== END 2025-03-27 09:56 | disposition home or self-care (01) ==
LOC: ANHLAB 09:55
PROVIDERS: PCP Family Medicine; Visit Provider Internal Medicine Nephrology
DX: E11.22 Type 2 diabetes mellitus with diabetic chronic kidney disease (principal); I12.9 Hypertensive chronic kidney disease with stage 1 through stage 4 chronic kidney disease, or unspecified chronic kidney disease; N18.32 Chronic kidney disease, stage 3b; N25.81 Secondary hyperparathyroidism of renal origin; E55.9 Vitamin D deficiency, unspecified
CPT/HCPCS: 36415; 80069; 82306; 82570; 83970; 84156